=== PATIENT | female | born 1970 | race Caucasian/White ===

== ENCOUNTER 2019-08-28 06:58 | Day surgery (SDC) | payer BC ==
[2019-08-28] MEDS ORDERED: PROPOFOL INJ 200 MG/20 ML VIAL IV ONE (07:10)
[2019-08-28] MEDS ORDERED: LIDOCAINE 2% INJ-PF (100 MG/5 ML) SYRINGE ONE (07:11)
--- NOTE | 2019-08-28 08:07 | Operative Report ---
Operative Report DATE OF SURGERY: 08/28/19 Operative Report: The risks benefits and alternatives of the procedure explained to the patient in detail and informed consent is obtained.A GIF Olympus video scope was inserted into the patient's mouth and hypopharynx, the esophagus is identified intubated and insufflated ,the scope was then advanced through the esophagus stomach and duodenum, retroflexion maneuver is done, the esophagus stomach and first and second portions of the duodenum examined PREOPERATIVE DIAGNOSIS: Dyspepsia POSTOPERATIVE DIAGNOSIS: Gastritis status post biopsy rule out Helicobacter pylori. Hiatal hernia OPERATION: EGD with biopsy SURGEON: HUMBERTO CODY ANESTHESIA: LMAC TISSUE REMOVED OR ALTERED: As noted above. COMPLICATIONS: None. ESTIMATED BLOOD LOSS: None. INTRAOPERATIVE FINDINGS: As noted above. PROCEDURE: Patient tolerated the procedure well. No immediate postprocedure complications are noted. Patient is discharged in good condition. Discharge date 08/28/2019. Discharge diet: Regular. Discharge activity: Regular. 2 to 3-week follow-up to discuss findings. Patient is instructed to call the office or proceed to the emergency room should there be any further problems or questions. Wait on the pathology.
[2019-08-28 08:35] VITALS: BP 109/49
== END 2019-08-28 08:40 | disposition home or self-care (01) ==
LOC: END 06:58
PROVIDERS: ATTEND Internal Medicine Gastroenterology
DX: K44.9 Diaphragmatic hernia without obstruction or gangrene (principal); K29.50 Unspecified chronic gastritis without bleeding; Z87.891 Personal history of nicotine dependence
CPT/HCPCS: 43239; 88342 ×2; 88305 ×2; 00731; J2001; J2704; 731